=== PATIENT | male | born 1990 | race Caucasian/White ===

== ENCOUNTER 2017-10-10 15:23 | Emergency (ER) | payer BC ==
[~2017-10-10] VITALS: Ht 182.9 cm; Wt 98.8 kg
[~2017-10-10 15:23] MED LIST: AQUAPHOR OINTM105 GM TP; MOTRIN800 MG PO; PERCOCET 5/31 TABLET PO
[2017-10-10 15:59] LABS: HEMATOCRIT 42.3 % (38.0-50.0); HEMOGLOBIN 15.2 G/DL (12.5-16.6); MCH 32.8 PG (29.0-34.0); MCHC 35.9 G/DL (30.0-36.0); MCV 91.4 FL (86-99); PLATELET COUNT 224 K/uL (156-360); RBC DIS.WIDTH-CV 11.5 % (11.8-14.6); RBC DIS.WIDTH-SD 38.4 % (39-53); RED BLOOD COUNT 4.63 M/uL (4.00-5.50); WHITE BLOOD COUNT 5.7 K/uL (4.1-10.2)
[2017-10-10 16:11] LABS: CHLORIDE 105 mEq/L (99-109); SODIUM 140 mEq/L (136-147)
[2017-10-10 16:13] LABS: GLUCOSE 87 mg/dL (70-99)
[2017-10-10 16:17] LABS: GFR ESTIMATE (CALCULATED) > 59 mL/min/ (58.99-99999)
[2017-10-10 16:18] LABS: UREA NITROGEN (BUN) 14 mg/dL (9-23)
[2017-10-10 16:27] LABS: TROP-I INTERPRETATION NEGATIVE; TROPONIN-I < 0.01 ng/mL (0.0-0.30)
[2017-10-10] MEDS ORDERED: NAPROXEN500 MG PO (18:17)
[2017-10-10 18:44] VITALS: BP 129/71
== END 2017-10-10 18:45 | disposition home or self-care (01) ==
LOC: EME 15:23
DX: R07.89 Other chest pain (principal)
CPT/HCPCS: 71046; 80048; 84484; 85027; 93005; 99281; 99283; J8540